=== PATIENT | female | born 1940 | race Caucasian/White ===

== ENCOUNTER 2019-09-06 11:11 | Emergency (ER) | payer MEDICARE, OTHER ==
[2019-09-06] MEDS ORDERED: NA PHOS,M-B/NA PHOS,DI-BA (ADULT) 133 ML ENEMA PR ONE ×2 (12:22→15:00)
--- NOTE | 2019-09-06 12:24 | ER Document Report ---
ED Medical Screen (RME) - General Chief Complaint: Constipation Stated Complaint: ABDOMINAL PAIN/CONSTIPATION Time Seen by Provider: 09/06/19 12:08 Notes: 79-year-old female with no medical problems presents to the emergency department for constipation. Last bowel movement was 5 days ago. Patient states that she has been increasing the dosing and frequency of her pain medications as of late. Exam: Well-appearing in mild distress, abdominal exam limited in the chair which she has left lower quadrant tenderness to palpation I have greeted and performed a rapid initial assessment of this patient. A comprehensive ED assessment and evaluation of the patient, analysis of test results and completion of medical decision making process will be conducted by an additional ED providers. TRAVEL OUTSIDE OF THE [place] IN LAST 30 DAYS: No - Related Data Allergies/Adverse Reactions: naproxen [From Aleve] Allergy (Verified 09/06/19 12:15) Penicillins Allergy (Verified 09/06/19 12:15) phenobarbital Allergy (Verified 09/06/19 12:15) Sulfa (Sulfonamide Antibiotics) Allergy (Verified 09/06/19 12:15) Physical Exam - Vital signs Vitals: Temp Pulse Resp BP Pulse Ox 98.3 F 105 H 20 156/73 H 92 09/06/19 11:31 09/06/19 11:31 09/06/19 11:31 09/06/19 11:31 09/06/19 11:31 Course - Vital Signs Vital signs: Temp Pulse Resp BP Pulse Ox 98.3 F 105 H 20 156/73 H 92 09/06/19 11:31 09/06/19 11:31 09/06/19 11:31 09/06/19 11:31 09/06/19 11:31
--- NOTE | 2019-09-06 13:03 | RADIOLOGY REPORT (SQ) ---
EXAM DESCRIPTION: ABDOMEN 2 VIEWS COMPLETED DATE/TIME: 09/06/2019 12:53 pm REASON FOR STUDY: constipation COMPARISON: None. NUMBER OF VIEWS: Two views. TECHNIQUE: Supine and upright radiographic images of the abdomen acquired. LIMITATIONS: None. FINDINGS: FREE AIR: None. No abnormal gas collections. LUNG BASES: Clear. BOWEL GAS PATTERN: Nonspecific nonobstructive bowel gas pattern. There is stool in the ascending col on and rectosigmoid, air-fluid levels in the transverse colon. No dilated small bowel loops. CALCIFICATIONS: No suspicious calcifications. SOFT TISSUES: No gross mass or suggestion of organomegaly. HARDWARE: Peripherally calcified breast implants bilaterally BONES: Convex leftward lumbar curvature OTHER: No other significant finding. IMPRESSION: Nonspecific nonobstructive bowel gas pattern TECHNICAL DOCUMENTATION: JOB ID: [id number] [employer]- All Rights Reserved Reading location - IP/workstation name: [email or web address]
[2019-09-06] MEDS ORDERED: NORMAL SALINE 500 ML IV ONE (15:57)
--- NOTE | 2019-09-06 16:01 | ER Document Report ---
ED General - General Chief Complaint: Constipation Stated Complaint: ABDOMINAL PAIN/CONSTIPATION Time Seen by Provider: 09/06/19 12:08 TRAVEL OUTSIDE OF THE [place] IN LAST 30 DAYS: No - HPI Notes: Patient is a 79-year-old female who presents emergency department for evaluation of left-sided abdominal pain. It is in her left side and radiates into her left lower quadrant. She states even has pain in her left lower back occasionally. She states she does not believe she had a bowel movement in at least 4 to 5 days. She states she had a fever of 100.1 over the last 2 evenings. She has had nausea with 2 episodes of emesis over the last 48 hours. She denies any urinary symptoms. Prior to me seeing the patient, she was administered an enema, with little in the way of results. - Related Data Allergies/Adverse Reactions: naproxen [From Aleve] Allergy (Verified 09/06/19 12:15) Penicillins Allergy (Verified 09/06/19 12:15) phenobarbital Allergy (Verified 09/06/19 12:15) Sulfa (Sulfonamide Antibiotics) Allergy (Verified 09/06/19 12:15) Past Medical History - General Information source: Patient - Social History Smoking Status: Former Smoker Family History: Reviewed & Not Pertinent Patient has suicidal ideation: No Patient has homicidal ideation: No GI Medical History: Reports: Hx Gastroesophageal Reflux Disease Musculoskeletal Medical History: Reports Other - Scoliosis and chronic back pain Past Surgical History: Reports: Hx Appendectomy, Hx Cholecystectomy, Hx Hysterectomy, Hx Orthopedic Surgery - right knee replacement, Hx Tonsillectomy Review of Systems - Review of Systems Constitutional: See HPI EENT: No symptoms reported Cardiovascular: No symptoms reported Respiratory: No symptoms reported Gastrointestinal: See HPI Genitourinary: No symptoms reported Musculoskeletal: See HPI Skin: No symptoms reported Neurological/Psychological: No symptoms reported Physical Exam - Vital signs Vitals: Temp Pulse Resp BP Pulse Ox 98.3 F 105 H 20 156/73 H 92 09/06/19 11:31 09/06/19 11:31 09/06/19 11:31 09/06/19 11:31 09/06/19 11:31 - Notes Notes: Vital signs reviewed, please refer to chart. Head is normocephalic, atraumatic. Pupils equal round, reactive to light. Neck is supple without meningismus. Heart is regular rate and rhythm. Lungs are clear to auscultation bilaterally. Abdomen is soft, moderately tender in the left lower quadrant without rebound or guarding, normoactive bowel sounds throughout. Extremities without cyanosis, clubbing. Posterior calves are nontender. Peripheral pulses are equal. Skin is warm and dry. Patient is awake, alert, neurological exam is nonfocal. Course - Re-evaluation Re-evalutation: 09/06/19 16:00 Patient presents emergency department for evaluation. Initially she complained significantly of constipation, but on further questioning she is been having constitutional symptoms as well. She denies any pain at this time, states she took a Vicodin prior to her arrival. At this point I am inclined to obtain blood work, give a small amount of fluids, and send her for CT scan of the abdomen and pelvis to rule out diverticulitis, ureteral stone, or other more acute intra-abdominal process. Patient is told to stay n.p.o., we will conotinue to monitor. 09/06/19 18:45 CT scan revealed 3 mm ureteral stone x2, in the left ureter, with mild hydronephrosis. Her urine reveals blood, no significant overt signs of infection. It was sent for culture. At this point the patient feels stable. He has Vicodin at home. I will send her home with Flomax, she was given her first dose here. She will also be sent home with Zofran. Regarding her constipation, it is primarily right-sided. She is sent home with magnesium citrate. Given the size of the stones, I find it likely that she will pass and without difficulty. She is to follow-up with primary care, return to the ED with worsening. - Vital Signs Vital signs: Temp Pulse Resp BP Pulse Ox 98.3 F 105 H 20 156/73 H 92 09/06/19 11:31 09/06/19 11:31 09/06/19 11:31 09/06/19 11:31 09/06/19 11:31 - Laboratory Result Diagrams: 09/06/19 16:22 09/06/19 16:22 Laboratory results interpreted by me: 09/06/19 09/06/19 16:22 17:40 WBC 11.2 H Absolute Neuts (auto) 8.6 H Urine Blood MODERATE H Ur Leukocyte Esterase TRACE H - Diagnostic Test Radiology reviewed: Reports reviewed Radiology results interpreted by me: 09/06/19 18:46 Abdomen X-Ray 09/06/19 12:13 IMPRESSION: Nonspecific nonobstructive bowel gas pattern Abdomen/Pelvis CT 09/06/19 15:56 IMPRESSION: Mild left hydronephrosis secondary to the presence of a couple of 3 mm calcifications in the proximal ureter. Constipation. Extensive diverticulosis coli. Discharge - Discharge Clinical Impression: Left ureteral calculus, Constipation Condition: Stable Disposition: HOME, SELF-CARE Instructions: Constipation (COUNT INCLUDES THE [facility]), Kidney Stone (COUNT INCLUDES THE [facility]) Additional Instructions: Rest, stay well-hydrated. Drink all of the magnesium citrate at once to help with your constipation. Increase fluid intake. In regards to your kidney stones, please take Flomax as directed, starting tomorrow. Watch for dizziness at this medicine. Take Zofran as needed for nausea. Take your pain medication as needed as well. Follow-up with your primary care provider next week. If you develop fevers, increased pain, vomiting, or any other new or concerning symptoms, please return immediately to the emergency department for reevaluation.
[2019-09-06 16:46] LABS: ABSOLUTE LYMPHOCYTES (AUTO) 1.8 10^3/uL (0.5-4.7); ABSOLUTE MONOCYTES (AUTO) 0.7 10^3/uL (0.1-1.4); ABSOLUTE NEUT (AUTO) 8.6 10^3/uL (1.7-8.2); BASOPHILS % (AUTO) 0.1 % (0-2); EOSINOPHILS % (AUTO) 0.1 % (0-6); HEMATOCRIT 43.7 % (36.0-47.0); HEMOGLOBIN 14.9 g/dL (12.0-15.5); LYMPHOCYTES % (AUTO) 15.9 % (13-45); MEAN CORPUSCULAR HEMOGLOBIN 30.1 pg (27.0-33.4); MEAN CORPUSCULAR HGB CONC 34.2 g/dL (32.0-36.0); MEAN CORPUSCULAR VOLUME 88 fl (80-97); MONOCYTES % (AUTO) 6.6 % (3-13); PLATELET COUNT 199 10^3/uL (150-450); RED BLOOD COUNT 4.95 10^6/uL (3.72-5.28); RED CELL DISTRIBUTION WIDTH 13.9 % (11.5-14.0); SEGMENTED NEUTROPHILS % (AUTO) 77.3 % (42-78); TOTAL CELLS COUNTED % (AUTO) 100 %; WHITE BLOOD COUNT 11.2 10^3/uL (4.0-10.5)
--- NOTE | 2019-09-06 16:55 | RADIOLOGY REPORT (SQ) ---
EXAM DESCRIPTION: CT ABD/PELVIS NO ORAL OR IV COMPLETED DATE/TIME: 09/06/2019 4:36 pm REASON FOR STUDY: Left lower quadrant pain and tenderness COMPARISON: None. TECHNIQUE: CT scan of the abdomen and pelvis performed without intravenous or oral contrast. Images reviewed with lung, soft tissue, and bone windows. Reconstructed coronal and sagittal MPR images revi ewed. All images stored on PACS. All CT scanners at this facility use dose modulation, iterative reconstruction, and/or weight based d osing when appropriate to reduce radiation dose to as low as reasonably achievable (ALARA). [facility]: Dose Right [facility]: CareDose [facility]: Dose Right [facility]: Teradose 4D [facility]: [employer] RADIATION DOSE: CT Rad equipment meets quality standard of care and radiation dose reduction techniq ues were employed. CTDIvol: 9.1 mGy. DLP: 408 mGy-cm.mGy. LIMITATIONS: None. FINDINGS: LOWER CHEST: No significant findings. No nodules or infiltrates. NON-CONTRASTED LIVER, SPLEEN, ADRENALS: Evaluation limited by lack of IV contrast. No identified sign ificant masses. PANCREAS: No masses. No peripancreatic inflammatory changes. GALLBLADDER: Surgically absent. RIGHT KIDNEY AND URETER: No suspicious masses. Parapelvic cysts are present. Assessment limited by lack of IV contrast. No significant calcifications. No hydronephrosis or hydroureter. LEFT KIDNEY AND URETER: No suspicious masses. Assessment limited by lack of IV contrast. No signifi cant calcifications. Mild hydronephrosis secondary to two 3 mm calcifications in the proximal urete r. AORTA AND RETROPERITONEUM: No aneurysm. No retroperitoneal masses or adenopathy. BOWEL AND PERITONEAL CAVITY: There is considerable stool in the right colon. The left colon is decom pressed. There are large numbers of descending and sigmoid diverticula with no acute associated infl ammation. APPENDIX: Surgically absent. PELVIS, BLADDER, AND ABDOMINAL WALL:No abnormal masses. No free fluid. Bladder normal. BONES: Scoliosis and degenerative disc changes with spondylosis in the lumbar spine. No osseous lesi ons. OTHER: No other significant finding. IMPRESSION: Mild left hydronephrosis secondary to the presence of a couple of 3 mm calcifications in the proximal ureter. Constipation. Extensive diverticulosis coli. COMMENT: Quality ID # [id number]: Final reports with documentation of one or more dose reduction techniques (e.g., Automated exposure control, adjustment of the mA and/or kV according to patient size, use of iterative reconstruction technique) TECHNICAL DOCUMENTATION: JOB ID: [id number]- All Rights Reserved Reading location - IP/workstation name: [email or web address]
[2019-09-06 17:08] LABS: ALBUMIN 4.3 g/dL (3.5-5.0); ALKALINE PHOSPHATASE 91 U/L (38-126); ANION GAP 11 (5-19); ASPARTATE AMINO TRANSFERASE 30 U/L (14-36); BILIRUBIN,DIRECT 0.1 mg/dL (0.0-0.4); BILIRUBIN,TOTAL 0.6 mg/dL (0.2-1.3); BLOOD UREA NITROGEN 16 mg/dL (7-20); CARBON DIOXIDE 30 mmol/L (22-30); CHLORIDE 98 mmol/L (98-107); GLUCOSE 101 mg/dL (75-110); POTASSIUM 4.2 mmol/L (3.6-5.0); TOTAL PROTEIN 7.1 g/dL (6.3-8.2)
[2019-09-06] MEDS ORDERED: TAMSULOSIN HCL 0.4 MG CAP.SR.24H PO ONE (17:21)
[2019-09-06 17:59] LABS: APPEARANCE,URINE CLEAR; BILIRUBIN,URINE NEGATIVE (NEGATIVE); COLOR,URINE YELLOW; GLUCOSE, URINE NEGATIVE (NEGATIVE); KETONES,URINE NEGATIVE (NEGATIVE); LEUKOCYTE ESTERASE,URINE TRACE (NEGATIVE); NITRITE,URINE NEGATIVE (NEGATIVE); PROTEIN,URINE NEGATIVE (NEGATIVE); URINE SPECIFIC GRAVITY 1.009; UROBILINOGEN,URINE NEGATIVE mg/dL (<2.0)
[2019-09-06] MEDS ORDERED: MAGNESIUM CITRATE 296 ML BOTTLE PO ONE (18:03)
[2019-09-06 19:22] VITALS: BP 142/70
== END 2019-09-06 19:21 | disposition home or self-care (01) ==
LOC: ER 11:11
DX: K59.00 Constipation, unspecified (principal); N13.2 Hydronephrosis with renal and ureteral calculous obstruction; R31.9 Hematuria, unspecified; K57.30 Diverticulosis of large intestine without perforation or abscess without bleeding; R11.2 Nausea with vomiting, unspecified; Z87.891 Personal history of nicotine dependence; Z88.8 Allergy status to other drugs, medicaments and biological substances; Z88.0 Allergy status to penicillin; Z88.2 Allergy status to sulfonamides
CPT/HCPCS: 36415; 87086; 83690; 85025; 80053; 81001; 74019; 74176; A9270 ×3; J7040; 96360; 96361; 99284; J3490